=== PATIENT | female | born 1940 | race Caucasian/White ===

== ENCOUNTER 2019-06-29 22:52 | Emergency (ER) | payer OTHER ==
[~2019-06-29] VITALS: Ht 162.6 cm; Wt 72.6 kg
[~2019-06-29 22:52] MED LIST: ATENOLOL-CHLORT1 TA2; CRESTOR40 MG; DIOVAN160 M1; FOLIC ACID1 MG; GLYBURID-METFOR1 TA3; KLOR-CON 1010 MEQ; LEVEMIR100 U/ML; NORVASC5 MG; SYNTHROID50 MCG
[2019-06-29] MEDS ORDERED: XARELTO10 MG (23:08)
[2019-06-30] MEDS ORDERED: INTESTINEX680 M1 PO (06:45)
[2019-06-30] MEDS ORDERED: LEVSIN/SL0.125 MG SL (06:45)
[2019-06-30] MEDS ORDERED: PEPCID AC20 MG PO (06:45)
[2019-06-30] MEDS ORDERED: DUI500 PO (06:45)
[2019-07-01] MEDS ORDERED: XARELTO15 MG (15:25)
[2019-07-01] MEDS ORDERED: GLUCOPHAGE XR500 MG (15:25)
[2019-07-01] MEDS ORDERED: CRESTOR20 MG (15:26)
[2019-07-01] MEDS ORDERED: HYDRALAZINE HCL25 MG (15:26)
[2019-07-01] MEDS ORDERED: GLIPIZIDE ER10 MG (15:27)
[2019-07-01] MEDS ORDERED: LOSARTAN-HCTZ1 EAC1 (15:27)
[2019-07-01] MEDS ORDERED: TOPROL XL25 M1 (15:27)
[2019-07-01] MEDS ORDERED: LEVOTHYROXINE (15:27)
[2019-07-01] MEDS ORDERED: FOLIC ACID1 MG (15:28)
== END 2019-06-30 07:12 | disposition home or self-care (01) ==
LOC: ER 22:52 → CPU-OBS 22:55 → ER 06-30 07:12
DX: R00.1 Bradycardia, unspecified (principal); R10.13 Epigastric pain; R19.7 Diarrhea, unspecified; N39.0 Urinary tract infection, site not specified

== ENCOUNTER 2019-07-01 14:45 | Emergency (ER) | payer OTHER ==
[~2019-07-01] VITALS: Ht 157.5 cm; Wt 19.1 kg
[~2019-07-01 14:45] MED LIST changes: +DUI500 PO; +INTESTINEX680 M1 PO; +LEVSIN/SL0.125 MG SL; +PEPCID AC20 MG PO; +XARELTO10 MG
[2019-07-01] MEDS ORDERED: GLUCOPHAGE XR500 MG (15:25)
[2019-07-01] MEDS ORDERED: XARELTO15 MG (15:25)
[2019-07-01] MEDS ORDERED: CRESTOR20 MG (15:26)
[2019-07-01] MEDS ORDERED: HYDRALAZINE HCL25 MG (15:26)
[2019-07-01] MEDS ORDERED: LOSARTAN-HCTZ1 EAC1 (15:27)
[2019-07-01] MEDS ORDERED: GLIPIZIDE ER10 MG (15:27)
[2019-07-01] MEDS ORDERED: TOPROL XL25 M1 (15:27)
[2019-07-01] MEDS ORDERED: LEVOTHYROXINE (15:27)
[2019-07-01] MEDS ORDERED: FOLIC ACID1 MG (15:28)
== END 2019-07-01 22:54 | disposition home or self-care (01) ==
LOC: ER 14:45
DX: K57.31 Diverticulosis of large intestine without perforation or abscess with bleeding (principal); K62.5 Hemorrhage of anus and rectum; S90.112A Contusion of left great toe without damage to nail, initial encounter; X58.XXXA Exposure to other specified factors, initial encounter; Y93.89 Activity, other specified; Y92.89 Other specified places as the place of occurrence of the external cause; Y99.8 Other external cause status

== ENCOUNTER → 2022-12-21 | Outpatient (CLI) | payer OTHER ==
[~2022-12-21] MED LIST changes: +CANDESARTAN CILE8 MG; +CRESTOR20 MG; +GLIPIZIDE ER10 MG; +GLUCOPHAGE XR500 MG; +HYDRALAZINE HCL25 MG; +LEVOTHYROXINE; +LOSARTAN-HCTZ1 EAC1; +METFORMIN HCL1000 M2; +PRILOSEC OTC20 MG; +TOPROL XL25 M1; +XARELTO15 MG
== END | disposition home or self-care (01) ==
LOC: NUCLEAR 07:00
PROVIDERS: ATTEND Specialist
DX: D35.1 Benign neoplasm of parathyroid gland (principal)
CPT/HCPCS: 78072; A9500

== ENCOUNTER 2024-07-26 04:10 | Emergency (ER) | payer OTHER ==
[~2024-07-26] VITALS: Ht 157.5 cm; Wt 56.2 kg
[2024-07-26] MEDS ORDERED: CARVEDILOL12.5 MG (04:16)
[2024-07-26] MEDS ORDERED: PROTONIX40 MG (04:17)
[2024-07-26] MEDS ORDERED: ADULT ASPIRIN81 MG (04:17)
[2024-07-26] MEDS ORDERED: ATACAND16 MG (04:17)
[2024-07-26] MEDS ORDERED: ISOSORBIDE MONO30 MG (04:17)
[2024-07-26] MEDS ORDERED: ZETIA10 MG (04:17)
[2024-07-26] MEDS ORDERED: LEVOTHYROXINE25 MCG (04:17)
[2024-07-26] MEDS ORDERED: PLAVIX75 MG (04:17)
[2024-07-26] MEDS ORDERED: JARDIANCE10 MG (04:18)
[2024-07-26] MEDS ORDERED: RINGERS SOLUTION,LACTATED 500 ML IV STA (04:27)
[2024-07-26] MEDS ORDERED: METOCLOPRAMIDE HCL 5 MG/ML VIAL IM STA (04:28)
[2024-07-26] MEDS ORDERED: FAMOtidine 10 MG/ML (4ML VIAL) IV PUSH STA (04:28)
[2024-07-26 04:51] LABS: HEMOGLOBIN 11.6 g/dL (12.0-15.00); MEAN CELL VOLUME 97.7 fL (80.00-100.00); MEAN CORPUSCULAR HEMOGLOBIN 33.4 pg (27.00-32.0); MEAN CORPUSCULAR HGB CONC 34.2 g/dl (32.0-36.0); PLATELET COUNT 132 K/uL (150-450); RED BLOOD COUNT 3.48 M/uL (4.00-6.00); RED CELL DISTRIBUTION WIDTH 14.2 % (11.5-14.5)
[2024-07-26 05:29] LABS: CALCIUM 9.1 mg/dL (8.5-10.1); CREATININE SERUM 1.39 mg/dL (0.55-1.02); GFR 36.03; POTASSIUM 4.14 mEq/L (3.5-5.1)
[2024-07-26] MEDS ORDERED: KETOROLAC TROMETHAMINE 30 MG VIAL IV STA (06:14)
== END 2024-07-26 07:37 | disposition home or self-care (01) ==
LOC: ER
DX: K29.70 Gastritis, unspecified, without bleeding (principal); K21.9 Gastro-esophageal reflux disease without esophagitis; R11.10 Vomiting, unspecified; R10.9 Unspecified abdominal pain; Z91.041 Radiographic dye allergy status
CPT/HCPCS: 36415; 93005; 96365; 96372; 99282; J1885; J2765; J3490

== ENCOUNTER 2024-09-06 12:27 | Emergency (ER) | payer OTHER ==
[~2024-09-06] VITALS: Ht 154.9 cm; Wt 53.1 kg
[~2024-09-06 12:27] MED LIST changes: +ADULT ASPIRIN81 MG; +ATACAND16 MG; +CARVEDILOL12.5 MG; +ISOSORBIDE MONO30 MG; +JARDIANCE10 MG; +LEVOTHYROXINE25 MCG; +PLAVIX75 MG; +PROTONIX40 MG; +ZETIA10 MG
[2024-09-06 14:17] LABS: HEMATOCRIT 31.6 % (36.0-45.00); MEAN CORPUSCULAR HEMOGLOBIN 33.8 pg (27.00-32.0); MEAN CORPUSCULAR HGB CONC 34.8 g/dl (32.0-36.0); PLATELET COUNT 140 K/uL (150-450); RED BLOOD COUNT 3.25 M/uL (4.00-6.00); RED CELL DISTRIBUTION WIDTH 14.3 % (11.5-14.5)
[2024-09-06 14:49] LABS: CALCIUM 8.6 mg/dL (8.5-10.1); CREATININE SERUM 1.56 mg/dL (0.55-1.02); GFR 31.54; POTASSIUM 3.92 mEq/L (3.5-5.1)
== END 2024-09-06 16:31 | disposition home or self-care (01) ==
LOC: ER 12:27
PROVIDERS: General Practice
DX: S00.83XA Contusion of other part of head, initial encounter (principal); W19.XXXA Unspecified fall, initial encounter; Y93.89 Activity, other specified; Y92.89 Other specified places as the place of occurrence of the external cause; Y99.8 Other external cause status; I10 Essential (primary) hypertension; E11.9 Type 2 diabetes mellitus without complications; Z79.84 Long term (current) use of oral hypoglycemic drugs; Z91.041 Radiographic dye allergy status

== ENCOUNTER → 2024-09-13 | Emergency (ER) | payer OTHER ==
[~2024-09-13] VITALS: Ht 162.6 cm; Wt 72.6 kg
[2024-09-13 12:30] LABS: HEMATOCRIT 33.6 % (36.0-45.00); HEMOGLOBIN 11.5 g/dL (12.0-15.00); MEAN CELL VOLUME 96.1 fL (80.00-100.00); MEAN CORPUSCULAR HEMOGLOBIN 32.9 pg (27.00-32.0); MEAN CORPUSCULAR HGB CONC 34.3 g/dl (32.0-36.0); PLATELET COUNT 161 K/uL (150-450); RED CELL DISTRIBUTION WIDTH 13.5 % (11.5-14.5)
[2024-09-13 12:49] LABS: CALCIUM 9.1 mg/dL (8.5-10.1); CREATININE SERUM 1.65 mg/dL (0.55-1.02); GFR 29.57; POTASSIUM 4.11 mEq/L (3.5-5.1)
== END | disposition home or self-care (01) ==
LOC: ER 11:29
PROVIDERS: Emergency Medicine
DX: S79.812A Other specified injuries of left hip, initial encounter (principal); W19.XXXA Unspecified fall, initial encounter; Y93.89 Activity, other specified; Y92.89 Other specified places as the place of occurrence of the external cause; Y99.8 Other external cause status; Z91.041 Radiographic dye allergy status

== ENCOUNTER 2025-04-26 20:24 | Inpatient (IN) | payer OTHER ==
[~2025-04-26] VITALS: Ht 157.5 cm; Wt 56.2 kg
[2025-04-26] MEDS ORDERED: TRADJENTA5 MG PO (20:48)
--- NOTE | 2025-04-26 20:50 | NUR ---
SE RECIBE FEMINA ALERTA Y ORIENTADA X3 EN AMBULANICA EN COMPANIA DE FAMILAIR QUIEN REFIERE FEMINA SUFRIO CAIDA DE YENY PROPIOS PIES EN EL HOGAR. PACIENTE REFIERE OLOR EN LACIENA BAYDA. SE MIDEN S/V Y SE UBICA.
[2025-04-26] MEDS ORDERED: FAMOtidine 10 MG/ML (4ML VIAL) IV ONE (21:00)
[2025-04-26] MEDS ORDERED: MORPHINE SULFATE 2 MG/ML SYRINGE IV ONE (21:00)
[2025-04-26] MEDS ORDERED: FAMOTIDINE/PF 20 MG/2 ML VIAL ONE (22:02)
--- NOTE | 2025-04-26 22:19 | NUR ---
MR. SHAHID EDUCA A PTE SOBRE [place] MED[facility], SE SHEREE MUESTRAS DE LABORATORIO UTILIZANDO MEDIDAS ASEPTICAS. SE COLOCA H/L ASHUTOSH DE EDEMA. SE ADMINISTRAN MEDICAMENTO LYUBOV ORDEN MEDICA. SE NOTIFICA RX Y CT PENDIENTES A REALIZAR.
[2025-04-26] MEDS ORDERED: 0.9 % SODIUM CHLORIDE 1,000 ML IV SCH (23:30)
[2025-04-26] MEDS ORDERED: ACETAMINOPHEN 500 MG GEL..CAP PO PRN (23:45)
[2025-04-26] MEDS ORDERED: MORPHINE SULFATE 4 MG/ML CARTRIDGE IV PRN (23:45)
[2025-04-26 23:50] LABS: BASO % 0.7 % (0.1-1.2); EOS # 0.08 (0.04-0.54); EOS % 1.1 % (0.7-7.0); LYMPH # 1.46 (1.18-3.74); LYMPH % 19.3 % (19.3-53.1); MEAN PLATELET VOLUME 10.60 fl (9.4-12.4); MONO # 0.56 (0.24-0.82); MONO % 7.4 % (4.7-12.5); NEUT # 5.41 (1.56-6.13); NEUT % 71.2 % (34.0-71.1); RED CELL DISTRIBUTION WIDTH 12.6 % (11.6-14.4)
[2025-04-27 00:07] LABS: URINE APPEARANCE Clear; URINE BILIRRUBIN Negative (NEGATIVE); URINE BLOOD Small; URINE COLOR Yellow; URINE GLUCOSE Negative (NEGATIVE); URINE KETONE Negative (NEGATIVE); URINE LEUKOCYTE Large; URINE NITRATE Negative; URINE UROBILINOGEN 0.2 E.U./dl
[2025-04-27 00:08] LABS: INR 1.24; URINE BACTERIA 176.4 uL (0.0-1933); URINE EPITHELIAL CELLS 9.9 uL (0.0-38.8); URINE RBC 35.4 uL (0.0-20.8); URINE WBC 172.7 uL (0.0-23.2)
[2025-04-27 00:12] LABS: ALT/SGPT 204.0 U/L (12-78); AST/SGOT 117.0 U/L (15-37); BILIRUBIN TOTAL 0.41 mg/dL (0.3-1.2); BUN CREA RATIO 8.0 (7.0-25.0); CREATININE SERUM 2.24 mg/dL (0.55-1.02); GFR 20.73; GLOBULINA 3.7 G/DL (2.4-3.5); GLUCOSE FASTING 180.0 mg/dL (65-100); OSMOLALITY SERUM 284.0 MOSM/KG (275-295)
[2025-04-27] MEDS ORDERED: IPRATROPIUM BROMIDE 0.5 MG/2.5 ML AMPUL.NEB IH ONE (00:20)
[2025-04-27] MEDS ORDERED: LEVALBUTEROL HCL 0.63 MG/3 ML SOLUTION IH ONE (00:20)
[2025-04-27 01:32] LABS: URINE CAST 0.87 uL (0.0-1.40); URINE PROTEIN 100 (NEGATIVE)
[2025-04-27 04:00] VITALS: BP 119/55; O2SAT 100
[2025-04-27 05:21] VITALS: BP 128/75; O2SAT 98
[2025-04-27 05:45] LABS: COVID-19 AG NEGATIVE (NEGATIVE)
[2025-04-27] MEDS ORDERED: LEVOTHYROXINE SODIUM 25 MCG TABLET PO SCH (06:00)
[2025-04-27 08:30] VITALS: BP 149/67; O2SAT 96
[2025-04-27] MEDS ORDERED: CANDESARTAN CILEXETIL 8 MG TAB PO SCH (09:00)
[2025-04-27] MEDS ORDERED: ENOXAPARIN SODIUM 40 MG/0.4 ML SYRINGE SUBCUTANEO SCH (09:00)
[2025-04-27] MEDS ORDERED: ROSUVASTATIN CALCIUM 20 MG TABLET PO SCH (09:00)
[2025-04-27] MEDS ORDERED: CARVEDILOL 6.25 MG TABLET PO SCH ×2 (09:00→21:00)
[2025-04-27] MEDS ORDERED: ISOSORBIDE MONONITRATE 30 MG TABLET PO SCH (09:00)
[2025-04-27] MEDS ORDERED: FAMOTIDINE/PF 20 MG in 0.9 % SODIUM CHLORIDE 8 ML IV PUSH SCH (09:00)
[2025-04-27 16:00] VITALS: BP 99/56; O2SAT 95
[2025-04-28 00:44] VITALS: BP 117/76; O2SAT 100
[2025-04-28 08:01] LABS: COL EPI 74 SECONDS (82-175)
[2025-04-28] MEDS ORDERED: CARVEDILOL 12.5 MG TABLET PO SCH (09:00)
[2025-04-28] MEDS ORDERED: CANDESARTAN CILEXETIL 16 MG TABLET PO SCH (09:00)
[2025-04-28 09:06] VITALS: BP 147/65; O2SAT 99
[2025-04-28 15:53] LABS: BUN CREA RATIO 13.0 (7.0-25.0); CREATININE SERUM 1.87 mg/dL (0.55-1.02); GFR 25.53; GLUCOSE FASTING 150.0 mg/dL (65-100); OSMOLALITY SERUM 277.0 MOSM/KG (275-295)
[2025-04-28 17:00] VITALS: BP 119/73; O2SAT 100
[2025-04-29 02:02] VITALS: BP 100/62; O2SAT 97
[2025-04-29] MEDS ORDERED: VANCOMYCIN HCL 1,000 MG VIAL ONE (07:03)
[2025-04-29] MEDS ORDERED: TRANEXAMIC ACID 100MG/1ML (1000MG) AMPUL ONE (07:03)
[2025-04-29] MEDS ORDERED: CEFTRIAXONE SODIUM 2,000 MG VIAL IV SCH (08:00)
[2025-04-29] MEDS ORDERED: ISOPROPYL ALCOHOL 30 ML OUNCE TOP ONE (08:16)
[2025-04-29] MEDS ORDERED: CHLORHEXIDINE GLUCONATE 120 ML BOTTLE TOP ONE (08:40)
[2025-04-29] MEDS ORDERED: CEFAZOLIN SODIUM 1,000 MG VIAL ONE (08:42)
[2025-04-29] MEDS ORDERED: NOREPINEPHRINE BITARTRATE 1 MG/ML AMPUL IV ONE (09:17)
[2025-04-29] MEDS ORDERED: ONDANSETRON HCL 2 MG/ML VIAL IV PRN (12:15)
[2025-04-29] MEDS ORDERED: SODIUM CHLORIDE 0.45 % 1,000 ML IV SCH (12:15)
[2025-04-29] MEDS ORDERED: PROMETHAZINE HCL 50 MG/ML AMPUL IM PRN (12:15)
[2025-04-29] MEDS ORDERED: ONDANSETRON 4 MG TAB.RAPDIS PO PRN (12:15)
[2025-04-29] MEDS ORDERED: MEPERIDINE HCL/PF 50 MG/ML VIAL IM PRN (12:15)
[2025-04-29 14:01] VITALS: BP 101/47; O2SAT 96
[2025-04-29] MEDS ORDERED: PANTOPRAZOLE SODIUM 40 MG TABLET.DR PO SCH (17:00)
[2025-04-29 17:32] VITALS: BP 101/46; O2SAT 95
[2025-04-30] VITALS: BP 104/61; O2SAT 95
[2025-04-30 06:27] LABS: BASO % 0.2 % (0.1-1.2); EOS # 0.00 (0.04-0.54); EOS % 0.0 % (0.7-7.0); LYMPH # 0.64 (1.18-3.74); LYMPH % 13.9 % (19.3-53.1); MEAN PLATELET VOLUME 10.50 fl (9.4-12.4); MONO # 0.48 (0.24-0.82); MONO % 10.4 % (4.7-12.5); NEUT # 3.48 (1.56-6.13); NEUT % 75.3 % (34.0-71.1); RED CELL DISTRIBUTION WIDTH 12.8 % (11.6-14.4)
[2025-04-30 06:53] LABS: BUN CREA RATIO 22.0 (7.0-25.0); CREATININE SERUM 1.39 mg/dL (0.55-1.02); GFR 35.95; GLUCOSE FASTING 125.0 mg/dL (65-100); OSMOLALITY SERUM 280.0 MOSM/KG (275-295)
[2025-04-30] MEDS ORDERED: 0.9 % SODIUM CHLORIDE 1,000 ML IV SCH (08:30)
[2025-04-30] MEDS ORDERED: RIVAROXABAN 10 MG TAB PO SCH (09:00)
[2025-04-30 09:33] VITALS: BP 103/48; O2SAT 93
[2025-04-30 11:15] LABS: ABG PH 7.573 (7.35-7.45); ABG PO2 169.5 mmHg (80-100); BICARBONATE 17.6 mmol/l (23-25)
[2025-04-30 11:17] LABS: o2 32 %
[2025-04-30 17:05] LABS: COVID-19 AG NEGATIVE (NEGATIVE)
[2025-04-30 17:48] VITALS: BP 102/63; O2SAT 98
[2025-04-30 21:16] VITALS: BP 161/64
[2025-05-01 01:28] VITALS: BP 93/61; O2SAT 97
[2025-05-01 08:14] LABS: BASO % 0.2 % (0.1-1.2); EOS # 0.03 (0.04-0.54); EOS % 0.6 % (0.7-7.0); LYMPH # 0.95 (1.18-3.74); LYMPH % 17.8 % (19.3-53.1); MEAN PLATELET VOLUME 11.10 fl (9.4-12.4); MONO # 0.60 (0.24-0.82); MONO % 11.3 % (4.7-12.5); NEUT # 3.72 (1.56-6.13); NEUT % 69.7 % (34.0-71.1); RED CELL DISTRIBUTION WIDTH 14.7 % (11.6-14.4)
[2025-05-01] MEDS ORDERED: LEVALBUTEROL HCL 0.63 MG/3 ML SOLUTION IH SCH (12:00)
[2025-05-01 16:00] VITALS: BP 136/77; O2SAT 95
[2025-05-01] MEDS ORDERED: LACTULOSE 20 G/30 ML BLIST.PACK PO STA (18:42)
[2025-05-01] MEDS ORDERED: MINERAL OIL 30 ML BLIST.PACK PO STA (18:43)
[2025-05-02 00:44] VITALS: BP 97/68; O2SAT 97
[2025-05-02 08:00] VITALS: BP 100/63; O2SAT 96
[2025-05-02] MEDS ORDERED: POLYETHYLENE GLYCOL 3350 17 GM BLIST.PACK PO SCH (10:33)
[2025-05-02 12:32] LABS: ABG PH 7.469 (7.35-7.45); ABG PO2 72.0 mmHg (80-100); BICARBONATE 21.2 mmol/l (23-25)
[2025-05-02 12:42] LABS: o2 21 %
[2025-05-02 16:45] VITALS: BP 121/71; O2SAT 99
[2025-05-03 01:25] VITALS: BP 93/65; O2SAT 98
[2025-05-03 08:00] VITALS: BP 115/55; O2SAT 96
[2025-05-03] MEDS ORDERED: RIVAROXABAN 20 MG TABLET PO SCH (09:00)
[2025-05-03] MEDS ORDERED: MINERAL OIL 133 ML ENEMA RECTAL ONE (10:30)
[2025-05-03 17:00] VITALS: BP 122/70; O2SAT 95
[2025-05-03] MEDS ORDERED: DEXTROSE 50 % IN WATER 0.5 G/ML VIAL IV PRN (19:45)
[2025-05-03] MEDS ORDERED: INSULIN LISPRO 1,000 UNIT/10 ML UNITS SUBCUTANEO PRN (19:45)
[2025-05-04 01:23] VITALS: BP 95/60; O2SAT 95
[2025-05-04 08:00] VITALS: BP 112/66; O2SAT 95
[2025-05-04 08:52] LABS: ALT/SGPT 114.0 U/L (12-78); AST/SGOT 109.0 U/L (15-37); BILIRUBIN TOTAL 0.9 mg/dL (0.3-1.2); BUN CREA RATIO 18.0 (7.0-25.0); CREATININE SERUM 1.14 mg/dL (0.55-1.02); GFR 45.19; GLOBULINA 3.1 G/DL (2.4-3.5); GLUCOSE FASTING 128.0 mg/dL (65-100); OSMOLALITY SERUM 284.0 MOSM/KG (275-295)
[2025-05-04] MEDS ORDERED: POLYETHYLENE GLYCOL 3350 17 GM BLIST.PACK PO SCH (09:00)
[2025-05-04] MEDS ORDERED: MINERAL OIL 133 ML ENEMA RECTAL SCH (09:00)
[2025-05-04 09:05] LABS: BASO % 0.4 % (0.1-1.2); EOS # 0.12 (0.04-0.54); EOS % 2.7 % (0.7-7.0); LYMPH # 1.29 (1.18-3.74); LYMPH % 28.9 % (19.3-53.1); MEAN PLATELET VOLUME 10.30 fl (9.4-12.4); MONO # 0.62 (0.24-0.82); NEUT # 2.41 (1.56-6.13); NEUT % 53.9 % (34.0-71.1); RED CELL DISTRIBUTION WIDTH 14.5 % (11.6-14.4)
[2025-05-04 09:13] LABS: MONO % 13.9 % (4.7-12.5)
[2025-05-04 16:35] VITALS: BP 139/80; O2SAT 98
[2025-05-04] MEDS ORDERED: MORPHINE SULFATE 4 MG/ML CARTRIDGE IV PRN (21:45)
[2025-05-04] MEDS ORDERED: ACETAMINOPHEN 500 MG GEL..CAP PO PRN (21:45)
[2025-05-05 00:32] VITALS: BP 114/65; O2SAT 100
[2025-05-05 08:32] VITALS: BP 106/60; O2SAT 98
[2025-05-05 16:00] VITALS: BP 132/71; O2SAT 97
[2025-05-05] MEDS ORDERED: MAGNESIUM HYDROXIDE 400 MG/5 ML ML PO STA (17:49)
[2025-05-05] MEDS ORDERED: MINERAL OIL 30 ML BLIST.PACK PO STA (17:50)
[2025-05-05] MEDS ORDERED: LACTULOSE 10 G/15 ML ML PO STA (17:50)
[2025-05-05] MEDS ORDERED: NA PHOS,M-B/NA PHOS,DI-BA 1 BOTTLE ENEMA RECTAL STA (17:54)
[2025-05-06] MEDS ORDERED: LACTULOSE 10 G/15 ML ML PO SCH
[2025-05-06 00:26] VITALS: BP 93/67; O2SAT 99
[2025-05-06 08:00] VITALS: BP 105/66; O2SAT 96
[2025-05-06] MEDS ORDERED: LACTULOSE 20 G/30 ML BLIST.PACK PO SCH (12:00)
[2025-05-06] MEDS ORDERED: PEG3350/SOD SULF,BICARB,CL/KCL 4,000 ML GALLON PO NR (12:45)
[2025-05-06] MEDS ORDERED: NA PHOS,M-B/NA PHOS,DI-BA 1 BOTTLE ENEMA RECTAL NR (12:45)
[2025-05-06] MEDS ORDERED: NAPROXEN 500 MG TABLET PO SCH (17:00)
[2025-05-06 17:38] VITALS: BP 117/73; O2SAT 97
[2025-05-07 00:30] VITALS: BP 101/62; O2SAT 97
[2025-05-07] MEDS ORDERED: AMINO ACIDS/PROTEIN HYDROLYS 30 ML BLIST.PACK PO SCH (09:00)
[2025-05-07 10:01] VITALS: BP 102/55; O2SAT 97
[2025-05-07 16:00] VITALS: BP 102/80; O2SAT 99
[2025-05-08 00:56] VITALS: BP 108/69; O2SAT 95
[2025-05-08 09:15] VITALS: BP 97/62; O2SAT 94
[2025-05-08 16:50] VITALS: BP 97/57; O2SAT 96
== END 2025-05-08 19:27 | DRG 482 ==
LOC: ER 20:24 → SURH 23:32
PROVIDERS: General Practice; Internal Medicine; Internal Medicine Nephrology; Orthopaedic Surgery; ADMIT Internal Medicine; ATTEND Internal Medicine
PROC: 0QR Lower Bones, Replacement (ICD-10-PCS; 2025-04-29)
PROC: 0QSC36Z Reposition Left Lower Femur with Intramedullary Internal Fixation Device, Percutaneous Approach (ICD-10-PCS; principal; 2025-04-29 07:15)
PROC: 30233N1 Transfusion of Nonautologous Red Blood Cells into Peripheral Vein, Percutaneous Approach (ICD-10-PCS; 2025-04-30)
DX: S72.22XA Displaced subtrochanteric fracture of left femur, initial encounter for closed fracture (principal); I10 Essential (primary) hypertension; E11.9 Type 2 diabetes mellitus without complications; Z79.4 Long term (current) use of insulin; N18.9 Chronic kidney disease, unspecified

== ENCOUNTER 2025-05-09 18:27 | Inpatient (IN) | payer OTHER ==
[~2025-05-09] VITALS: Ht 152.4 cm; Wt 59.0 kg
[~2025-05-09 18:27] MED LIST changes: +TRADJENTA5 MG PO
[2025-05-09 20:39] LABS: BASO % 0.2 % (0.1-1.2); EOS # 0.08 (0.04-0.54); EOS % 0.9 % (0.7-7.0); LYMPH # 1.34 (1.18-3.74); LYMPH % 15.6 % (19.3-53.1); MEAN PLATELET VOLUME 9.90 fl (9.4-12.4); MONO # 0.59 (0.24-0.82); MONO % 6.9 % (4.7-12.5); NEUT # 6.55 (1.56-6.13); NEUT % 76.1 % (34.0-71.1); RED CELL DISTRIBUTION WIDTH 14.8 % (11.6-14.4)
[2025-05-09 21:03] LABS: ALT/SGPT 66.0 U/L (12-78); AST/SGOT 41.0 U/L (15-37); BILIRUBIN TOTAL 0.78 mg/dL (0.3-1.2); BUN CREA RATIO 20.0 (7.0-25.0); CREATININE SERUM 1.57 mg/dL (0.55-1.02); GFR 31.24; GLOBULINA 3.7 G/DL (2.4-3.5); GLUCOSE FASTING 186.0 mg/dL (65-100); LDH 552.0 U/L (84-246); OSMOLALITY SERUM 282.0 MOSM/KG (275-295); PHOSPHOKINASE CREATININE 165.0 U/L (26-192)
[2025-05-09] MEDS ORDERED: ASPIRIN 81 MG TABLET.EC PO SCH (22:27)
[2025-05-09] MEDS ORDERED: CLOPIDOGREL BISULFATE 75 MG TABLET PO SCH (22:28)
[2025-05-09] MEDS ORDERED: NITROGLYCERIN IN 5 % DEXTROSE 250 ML IV SCH (22:30)
[2025-05-09] MEDS ORDERED: ENOXAPARIN SODIUM 60 MG/0.6 ML SYRINGE SUBCUTANEO SCH (22:30)
[2025-05-09] MEDS ORDERED: DEXTROSE 50 % IN WATER 0.5 G/ML DISP.SYRIN IV PRN (22:30)
[2025-05-09] MEDS ORDERED: INSULIN LISPRO 1,000 UNIT/10 ML UNITS SUBCUTANEO PRN (22:30)
[2025-05-09] MEDS ORDERED: ATORVASTATIN CALCIUM 40 MG TABLET PO SCH (22:31)
[2025-05-09 23:00] VITALS: BP 77/35; O2SAT 97
[2025-05-10] VITALS (10 sets, daily range): BP systolic 90–142; BP diastolic 42–86; O2SAT 100
[2025-05-10] MEDS ORDERED: NOREPINEPHRINE BITARTRATE 8 MG in DEXTROSE 5 % IN WATER 250 ML IV SCH (02:30)
[2025-05-10 02:45] LABS: INR 1.17
[2025-05-10 02:49] LABS: ABG PH 7.467 (7.35-7.45)
[2025-05-10 02:50] LABS: BICARBONATE 27.2 mmol/l (23-25); o2 21 %
[2025-05-10 02:51] LABS: ABG PO2 104.5 mmHg (80-100)
[2025-05-10 03:34] LABS: CHOL HDL RATIO 2.5 (0-5.0); HDL 39.0 mg/dl (40-60); LDL 39.0 mg/dl (0-130); VLDL 18.0 (0-39)
[2025-05-10] MEDS ORDERED: NITROGLYCERIN IN 5 % DEXTROSE 250 ML IV SCH (09:15)
[2025-05-11] VITALS (18 sets, daily range): BP systolic 85–126; BP diastolic 41–72; O2SAT 100
[2025-05-11] MEDS ORDERED: MIDODRINE HCL 5 MG TABLET PO SCH (09:00)
[2025-05-11] MEDS ORDERED: DOCUSATE SODIUM 100MG CAP PO SCH (21:00)
[2025-05-12 04:00] VITALS: BP 115/79; O2SAT 100
[2025-05-12 07:10] VITALS: BP 104/60; O2SAT 100
[2025-05-12 08:12] LABS: BUN CREA RATIO 22.0 (7.0-25.0); CREATININE SERUM 1.16 mg/dL (0.55-1.02); GFR 44.29; GLUCOSE FASTING 126.0 mg/dL (65-100); OSMOLALITY SERUM 283.0 MOSM/KG (275-295)
[2025-05-12 12:36] VITALS: BP 111/42; O2SAT 100
[2025-05-12] MEDS ORDERED: PANTOPRAZOLE SODIUM 40 MG TABLET.DR PO NR (14:45)
[2025-05-12 15:31] VITALS: BP 89/40; O2SAT 100
[2025-05-12] MEDS ORDERED: ENOXAPARIN SODIUM 60 MG/0.6 ML SYRINGE SUBCUTANEO SCH (21:00)
[2025-05-12 22:11] VITALS: O2SAT 100
[2025-05-13] VITALS (11 sets, daily range): BP systolic 93–113; BP diastolic 56–70; O2SAT 96–100
[2025-05-13] MEDS ORDERED: ENOXAPARIN SODIUM 60 MG/0.6 ML SYRINGE SUBCUTANEO SCH (09:00)
[2025-05-13] MEDS ORDERED: PANTOPRAZOLE SODIUM 40 MG TABLET.DR PO SCH (09:00)
[2025-05-13] MEDS ORDERED: APIXABAN 5 MG TABLET PO SCH (17:00)
[2025-05-14 02:04] VITALS: BP 98/63
[2025-05-14 05:00] VITALS: O2SAT 97
[2025-05-14 06:38] LABS: BASO % 0.4 % (0.1-1.2); EOS # 0.08 (0.04-0.54); EOS % 1.5 % (0.7-7.0); LYMPH # 1.48 (1.18-3.74); LYMPH % 27.6 % (19.3-53.1); MEAN PLATELET VOLUME 10.10 fl (9.4-12.4); MONO # 0.53 (0.24-0.82); MONO % 9.9 % (4.7-12.5); NEUT # 3.25 (1.56-6.13); NEUT % 60.4 % (34.0-71.1); RED CELL DISTRIBUTION WIDTH 15.1 % (11.6-14.4)
[2025-05-14] MEDS ORDERED: APIXABAN 2.5 MG TABLET PO SCH (09:00)
[2025-05-14 09:01] VITALS: O2SAT 100
[2025-05-14 09:09] VITALS: BP 91/58; O2SAT 98
[2025-05-14 17:00] VITALS: O2SAT 100
[2025-05-14 21:47] VITALS: O2SAT 100
[2025-05-15 00:33] VITALS: O2SAT 97
[2025-05-15 00:59] VITALS: BP 106/63; O2SAT 96
[2025-05-15 06:09] VITALS: O2SAT 100
[2025-05-15 06:14] LABS: BASO % 0.7 % (0.1-1.2); EOS # 0.07 (0.04-0.54); EOS % 1.1 % (0.7-7.0); LYMPH # 1.35 (1.18-3.74); LYMPH % 22.0 % (19.3-53.1); MEAN PLATELET VOLUME 10.20 fl (9.4-12.4); MONO # 0.63 (0.24-0.82); MONO % 10.3 % (4.7-12.5); NEUT # 4.03 (1.56-6.13); NEUT % 65.7 % (34.0-71.1); RED CELL DISTRIBUTION WIDTH 14.9 % (11.6-14.4)
[2025-05-15 08:12] VITALS: BP 110/60
[2025-05-15] MEDS ORDERED: ONDANSETRON HCL 2 MG/ML VIAL IV NR (10:45)
[2025-05-15 14:02] LABS: COVID-19 AG NEGATIVE (NEGATIVE)
[2025-05-16] MEDS ORDERED: DAFLONEX-XL 11300 MG (11:17)
[2025-05-16] MEDS ORDERED: ELIQUIS2.5 MG (11:18)
[2025-05-16] MEDS ORDERED: PEPCID AC20 MG (11:18)
[2025-05-16] MEDS ORDERED: FOLIVANE-PLUS1 EACH (11:18)
[2025-05-16] MEDS ORDERED: TRADJENTA5 MG (11:19)
[2025-05-16] MEDS ORDERED: ROSUVASTATIN CA20 MG (11:19)
== END 2025-05-15 14:43 | DRG 315 ==
LOC: ER 18:27 → ICU-2 22:41 → MEDJ 22:41 → ICU 05-10 11:36 → ICU-2 05-10 12:45 → ICU 05-10 18:49 → MEDI 05-12 19:14
PROVIDERS: General Practice; ADMIT Internal Medicine; ATTEND Internal Medicine
PROC: B246ZZZ Ultrasonography of Right and Left Heart (ICD-10-PCS; principal; 2025-05-09)
PROC: 4A12X4Z Monitoring of Cardiac Electrical Activity, External Approach (ICD-10-PCS; 2025-05-09)
PROC: 3E0F7SF Introduction of Other Gas into Respiratory Tract, Via Natural or Artificial Opening (ICD-10-PCS; 2025-05-09)
PROC: CB221ZZ Tomographic (Tomo) Nuclear Medicine Imaging of Lungs and Bronchi using Technetium 99m (Tc-99m) (ICD-10-PCS; 2025-05-12)
DX: I95.89 Other hypotension (principal); I82.493 Acute embolism and thrombosis of other specified deep vein of lower extremity, bilateral; R60.0 Localized edema; I10 Essential (primary) hypertension